=== PATIENT | male | born 1985 | race Caucasian/White ===

== ENCOUNTER → 2017-02-07 | Outpatient (CLI) | payer BC, OTHER ==
[~2017-02-07] MED LIST: ALBUAER2 INH; DIGO0.1267 PO; LORA-741 PO; METO25TA56 PO; POLY335019 PO
== END | disposition home or self-care (01) ==
LOC: C.LABBC 14:43
PROVIDERS: ATTEND Physician Assistant
DX: I50.9 Heart failure, unspecified (principal)